=== PATIENT | male | born 1940 | race Asian ===

== ENCOUNTER 2016-10-25 09:04 | Inpatient (IN) | payer MEDICARE, OTHER ==
[~2016-10-25] VITALS: Ht 165.1 cm; Wt 77.5 kg
[2016-10-25 10:23] LABS: Basophils # (auto) 0.1 uL; Basophils % (auto) 1.1 % (0.0-2.0); Eosinophils # (auto) 0.2 uL; Eosinophils % (auto) 1.6 % (0.0-7.0); Hematocrit 43.9 % (41.0-53.0); Hemoglobin 14.3 g/dL (13.5-17.5); Lymphocytes # (auto) 1.8 uL; Lymphocytes % (auto) 18.3 % (10.0-50.0); Mean Corpuscular Hemoglobin 28.5 pg (28.0-32.0); Mean Corpuscular Hgb Conc. 32.5 g/dL (32.0-36.0); Mean Corpuscular Volume 87.8 fL (80.0-100.0); Mean Platelet Volume 7.8 fL (7.4-10.4); Monocytes # (auto) 0.6 uL; Monocytes % (auto) 6.1 % (0.0-12.0); Neutrophils # (auto) 6.9 uL; Neutrophils % (auto) 72.9 % (37.0-80.0); Platelet Count (auto) 328 10^3/uL (140-450); Red Cell Distribution Width 12.3 % (11.6-16.0); White Blood Cell 9.6 10^3/uL (4.4-10.8)
[2016-10-25 10:50] LABS: Albumin 3.3 g/dL (3.4-5.0); BUN/Creatinine Ratio 10.2; Bilirubin, Total 0.4 mg/dL (0.2-1.0); Calcium 9.3 mg/dL (8.5-10.1); Magnesium 2.5 mg/dL (1.6-2.6); Potassium 3.5 mmol/L (3.5-5.1); Total Protein 6.8 g/dL (6.4-8.2)
[2016-10-25] MEDS ORDERED: SODIUM CHLORIDE 0.9% 1,000 ML IV ONE (11:43)
[2016-10-25] MEDS ORDERED: ENOXAPARIN SOD 80 MG/0.8ML SYRINGE SC ONE (11:45)
[2016-10-25] MEDS ORDERED: DEXTROSE (50%) 50ML SYRG IV PRN (14:45)
[2016-10-25] MEDS ORDERED: NITROGLYCERIN 0.4 MG SL TAB SL PRN (14:45)
[2016-10-25] MEDS ORDERED: ASPirin 81 mg TAB PO ONE (14:45)
[2016-10-25] MEDS ORDERED: MORPHINE SULF INJ 2 MG/ML SYRINGE 1ML IV PRN (14:45)
[2016-10-25] MEDS: SODIUM CHLORIDE 0.9% 1,000 ML IV SCH ×2 (14:49→17:19)
[2016-10-25] MEDS: METOPROLOL TARTRATE 25 MG TAB PO SCH ×2 (14:52→23:17)
[2016-10-25] MEDS ORDERED: ASP81EC PO (15:18)
[2016-10-25] MEDS ORDERED: METF-489 PO (15:18)
[2016-10-25] MEDS ORDERED: AMLO10TA2 PO (15:18)
[2016-10-25] MEDS ORDERED: ESOM40CA39 PO (15:18)
[2016-10-25] MEDS ORDERED: GABA-339 PO (15:18)
[2016-10-25] MEDS ORDERED: POTA20IN2 PO (15:18)
[2016-10-25] MEDS ORDERED: TAM04C PO (15:18)
[2016-10-25] MEDS ORDERED: SITA50TA PO (15:18)
[2016-10-25] MEDS ORDERED: LOSARTAN/HCTZ PO (15:18)
[2016-10-25] MEDS ORDERED: GABA-521 PO (15:18)
[2016-10-25] MEDS ORDERED: LEV50T PO (15:18)
[2016-10-25] MEDS: ACCU-CHEK COMFORT CURVE STRIP VI SCH ×2 (17:20→23:19)
[2016-10-25] MEDS: InsuLIN REG 1unit/0.01ml Soln (100units/ml) SC SCH ×2 (17:41→23:21)
[2016-10-25 20:14] LABS: Urine Bilirubin Negative (Negative); Urine Blood Negative /uL (Negative); Urine Color Yellow (Yellow); Urine Glucose Normal (Normal); Urine Ketone Negative (Negative); Urine RBC 3 /hpf (0 - 3); Urine Triple Phosphate Crystal FEW /hpf (None Seen); Urine Urobilinogen Normal (Negative); Urine pH 8.5 (5.0-8.0)
[2016-10-25 20:27] LABS: Urine Nitrite POSITIVE (Negative)
[2016-10-25 22:00] VITALS: BP 131/71
[2016-10-25] MEDS ORDERED: PATIENTS OWN MEDICATION (Gabapentin 1 TAB) PO SCH ×2 (22:00)
[2016-10-25] MEDS ORDERED: HYDROcodone-ACET 10/325MG TAB PO ONE (22:00)
[2016-10-25] MEDS: ATORVASTATIN 20 MG TAB PO SCH (23:17)
[2016-10-25] MEDS: GABAPENTIN 300 MG CAP PO SCH (23:18)
[2016-10-25] MEDS: GABAPENTIN 400 MG CAP PO SCH (23:19)
[2016-10-26] MEDS: METOPROLOL TARTRATE 25 MG TAB PO SCH ×3 (00:17→22:28)
[2016-10-26 01:09] VITALS: BP 145/68
[2016-10-26] MEDS: HYDROcodone-ACET 10/325MG TAB PO PRN ×3 (04:00→22:28)
[2016-10-26 05:30] VITALS: BP 148/71
[2016-10-26] MEDS: LEVOTHYROXINE SODIUM 25 MCG TAB PO SCH (06:02)
[2016-10-26] MEDS: ACCU-CHEK COMFORT CURVE STRIP VI SCH ×4 (06:39→22:32)
[2016-10-26] MEDS: InsuLIN REG 1unit/0.01ml Soln (100units/ml) SC SCH ×4 (06:42→22:45)
[2016-10-26 07:08] LABS: BUN/Creatinine Ratio 11.9; Calcium 8.7 mg/dL (8.5-10.1)
[2016-10-26 07:38] LABS: Potassium 2.6 mmol/L (3.5-5.1)
[2016-10-26] MEDS ORDERED: POTASSIUM CHL 20 Meq TABLET PO ONE ×2 (08:00→12:15)
[2016-10-26 08:22] VITALS: BP 153/88
[2016-10-26] MEDS: POTASSIUM CHL 20 Meq TABLET PO SCH ×2 (08:44→08:46)
[2016-10-26] MEDS ORDERED: ADENOSINE 61 MG in GIVE UN-DILUTED 0 ML IV ONE (09:30)
[2016-10-26] MEDS ORDERED: ASPirin 81 mg TAB PO SCH (10:00)
[2016-10-26] MEDS: SITAGLIPTIN PHOSPHATE PO SCH (10:00)
[2016-10-26 11:45] VITALS: BP 154/89
[2016-10-26] MEDS: ASPirin-EC 81 mg tab PO SCH (12:12)
[2016-10-26] MEDS: GABAPENTIN 400 MG CAP PO SCH ×2 (12:12→22:27)
[2016-10-26] MEDS: PANTOPRAZOLE 40 MG TAB PO SCH (12:12)
[2016-10-26] MEDS: GABAPENTIN 300 MG CAP PO SCH ×2 (12:12→22:27)
[2016-10-26] MEDS: amLODIPine BESYLATE 5 MG TAB PO SCH (12:13)
[2016-10-26] MEDS: TAMSULOSIN HYDROCHLORIDE 0.4 MG CAP PO SCH (12:13)
[2016-10-26] MEDS ORDERED: cefTRIAXone 1GM/50ML D5W 50 ML IV ONE (12:15)
[2016-10-26 17:10] VITALS: BP 163/87
[2016-10-26 22:00] VITALS: BP 148/80
[2016-10-26] MEDS: ATORVASTATIN 20 MG TAB PO SCH (22:27)
[2016-10-27] MEDS: SODIUM CHLORIDE 0.9% 1,000 ML IV SCH ×2 (00:09→16:45)
[2016-10-27 05:30] VITALS: BP 166/91
[2016-10-27] MEDS: HYDROcodone-ACET 10/325MG TAB PO PRN (06:06)
[2016-10-27] MEDS: LEVOTHYROXINE SODIUM 25 MCG TAB PO SCH (06:06)
[2016-10-27] MEDS: ACCU-CHEK COMFORT CURVE STRIP VI SCH ×3 (06:06→16:58)
[2016-10-27 06:38] LABS: Calcium 8.4 mg/dL (8.5-10.1)
[2016-10-27 06:40] LABS: BUN/Creatinine Ratio 12.6
[2016-10-27] MEDS: InsuLIN REG 1unit/0.01ml Soln (100units/ml) SC SCH ×3 (06:44→17:00)
[2016-10-27] MEDS ORDERED: cefTRIAXone 1GM/50ML D5W 50 ML IV SCH (09:00)
[2016-10-27 09:23] VITALS: BP 153/91
[2016-10-27] MEDS: GABAPENTIN 400 MG CAP PO SCH (10:00)
[2016-10-27] MEDS: SITAGLIPTIN PHOSPHATE PO SCH (10:00)
[2016-10-27] MEDS: POTASSIUM CHL 20 Meq TABLET PO SCH (10:24)
[2016-10-27] MEDS: TAMSULOSIN HYDROCHLORIDE 0.4 MG CAP PO SCH (10:25)
[2016-10-27] MEDS: GABAPENTIN 300 MG CAP PO SCH (10:25)
[2016-10-27] MEDS: ASPirin-EC 81 mg tab PO SCH (10:25)
[2016-10-27] MEDS: METOPROLOL TARTRATE 25 MG TAB PO SCH (10:25)
[2016-10-27] MEDS: PANTOPRAZOLE 40 MG TAB PO SCH (10:27)
[2016-10-27] MEDS: amLODIPine BESYLATE 5 MG TAB PO SCH (10:27)
[2016-10-27 12:37] VITALS: BP 164/98
[2016-10-27] MEDS ORDERED: POTASSIUM CHL 20 Meq TABLET PO ONE (14:45)
[2016-10-27 15:04] VITALS: BP 153/91
[2016-10-27 16:33] VITALS: BP 159/89
[2016-10-27 18:13] VITALS: BP 159/89
== END 2016-10-27 18:10 | disposition home or self-care (01) | DRG 206 ==
LOC: ER 09:04 → EDBD 09:04 → TELE 09:05 → TELE-WESTW 20:30
PROVIDERS: ADMIT Internal Medicine; ATTEND Internal Medicine
DX: M94.0 Chondrocostal junction syndrome [Tietze] (principal); G82.20 Paraplegia, unspecified; N39.0 Urinary tract infection, site not specified; E87.6 Hypokalemia; N31.9 Neuromuscular dysfunction of bladder, unspecified; I12.9 Hypertensive chronic kidney disease with stage 1 through stage 4 chronic kidney disease, or unspecified chronic kidney disease; N18.3 Chronic kidney disease, stage 3 (moderate); E11.22 Type 2 diabetes mellitus with diabetic chronic kidney disease; I25.10 Atherosclerotic heart disease of native coronary artery without angina pectoris; Z98.890 Other specified postprocedural states
CPT/HCPCS: 36415; 71010; 78452; 80048; 80053; 80061; 81001; 82962; 83036; 83735; 84484; 85025; 85379; 93005; 93017; 93306; 94761; 96360; 96372; J0153; J0696; J1815

== ENCOUNTER → 2016-12-05 | Outpatient (CLI) | payer MEDICARE, OTHER ==
[~2016-12-05] MED LIST: AMLO10TA2 PO; ASP81EC PO; ESOM40CA39 PO; GABA-339 PO; GABA-521 PO; LEV50T PO; LOSARTAN/HCTZ PO; METF-489 PO; POTA20IN2 PO; SITA50TA PO; TAM04C PO
[2016-12-05 12:02] LABS: Basophils # (auto) 0.1 uL; Basophils % (auto) 0.5 % (0.0-2.0); Eosinophils # (auto) 0.3 uL; Eosinophils % (auto) 2.4 % (0.0-7.0); Hematocrit 41.7 % (41.0-53.0); Hemoglobin 13.3 g/dL (13.5-17.5); Lymphocytes # (auto) 2.3 uL; Lymphocytes % (auto) 18.6 % (10.0-50.0); Mean Corpuscular Hemoglobin 28.2 pg (28.0-32.0); Mean Corpuscular Hgb Conc. 31.9 g/dL (32.0-36.0); Mean Corpuscular Volume 88.4 fL (80.0-100.0); Mean Platelet Volume 8.6 fL (7.4-10.4); Monocytes # (auto) 0.8 uL; Monocytes % (auto) 6.6 % (0.0-12.0); Neutrophils # (auto) 8.7 uL; Neutrophils % (auto) 71.9 % (37.0-80.0); Platelet Count (auto) 351 10^3/uL (140-450); Red Cell Distribution Width 13.5 % (11.6-16.0); White Blood Cell 12.1 10^3/uL (4.4-10.8)
[2016-12-05 12:23] LABS: Albumin 3.5 g/dL (3.4-5.0); Alkaline Phosphatase 67 U/L (45-117); Anion Gap 12 (5-15); Aspartate Aminotransferase 14 U/L (15-37); BUN/Creatinine Ratio 14.2; Bilirubin, Total 0.3 mg/dL (0.2-1.0); Blood Urea Nitrogen 30 mg/dL (7-18); Calcium 9.2 mg/dL (8.5-10.1); Carbon Dioxide 32 mmol/L (21-32); Chloride 98 mmol/L (98-107); Cholesterol 208 mg/dL (<200); GFR African American 39 mL/min; GFR Non-African American 33 mL/min; Glucose 174 mg/dL (74-106); HDL Cholesterol 42 mg/dL (40-59); Potassium 3.1 mmol/L (3.5-5.1); Sodium 142 mmol/L (136-145); Total Protein 7.5 g/dL (6.4-8.2); Triglycerides 414 mg/dL (<150)
== END | disposition home or self-care (01) ==
LOC: LAB 10:47
PROVIDERS: ATTEND Internal Medicine
DX: Z00.00 Encounter for general adult medical examination without abnormal findings (principal)
CPT/HCPCS: 36415; 80053; 80061; 83036; 84443; 85025

== ENCOUNTER → 2017-03-28 | Outpatient (CLI) | payer MEDICARE, OTHER ==
[2017-03-28 11:15] LABS: Albumin 3.2 g/dL (3.4-5.0); BUN/Creatinine Ratio 14.5; Bilirubin, Total 0.4 mg/dL (0.2-1.0); Calcium 8.5 mg/dL (8.5-10.1); Total Protein 6.6 g/dL (6.4-8.2)
== END | disposition home or self-care (01) ==
LOC: LAB 10:13
DX: E11.65 Type 2 diabetes mellitus with hyperglycemia (principal)
CPT/HCPCS: 36415; 80053; 80061; 82043; 82570; 83036; 84443

== ENCOUNTER → 2017-07-24 | Outpatient (CLI) | payer MEDICARE, OTHER ==
[2017-07-24 11:48] LABS: Urine Protein/Creatinine Ratio 9.65
[2017-07-24 11:53] LABS: Albumin 3.4 g/dL (3.4-5.0); BUN/Creatinine Ratio 10.5; Bilirubin, Total 0.5 mg/dL (0.2-1.0); Potassium 3.2 mmol/L (3.5-5.1)
== END | disposition home or self-care (01) ==
LOC: LAB 10:34
DX: E11.65 Type 2 diabetes mellitus with hyperglycemia (principal); I10 Essential (primary) hypertension
CPT/HCPCS: 36415; 80053; 80061; 82570; 83036; 84156; 84443

== ENCOUNTER 2017-08-13 09:50 | Emergency (ER) | payer MEDICARE ==
[~2017-08-13] VITALS: Ht 165.1 cm; Wt 81.6 kg
[2017-08-13 10:30] LABS: Urine Bilirubin Negative (Negative); Urine Blood 1+ /uL (Negative); Urine Color Yellow (Yellow); Urine Glucose 4+ mg/dL (Normal); Urine Ketone Negative (Negative); Urine Nitrite POSITIVE (Negative); Urine RBC 1 /hpf (0 - 3); Urine Urobilinogen Normal (Negative); Urine WBC Clumps PRESENT /hpf (None Seen)
[2017-08-13 10:36] LABS: Basophils # (auto) 0.1 uL; Basophils % (auto) 1.2 % (0.0-2.0); Eosinophils # (auto) 0.3 uL; Eosinophils % (auto) 3.4 % (0.0-7.0); Hematocrit 42.8 % (41.0-53.0); Hemoglobin 14.3 g/dL (13.5-17.5); Lymphocytes # (auto) 1.7 uL; Lymphocytes % (auto) 20.6 % (10.0-50.0); Mean Corpuscular Hemoglobin 30.1 pg (28.0-32.0); Mean Corpuscular Hgb Conc. 33.5 g/dL (32.0-36.0); Mean Platelet Volume 8.3 fL (6.9-10.8); Monocytes # (auto) 0.5 uL; Monocytes % (auto) 5.4 % (0.0-12.0); Neutrophils # (auto) 5.9 uL; Neutrophils % (auto) 69.4 % (37.0-80.0); Nucleated Red Blood Cells % 0.1 %; Platelet Count (auto) 316 10^3/uL (140-450); Red Cell Distribution Width 13.8 % (11.8-14.3); White Blood Cell 8.5 10^3/uL (4.4-10.8)
[2017-08-13 10:54] LABS: Albumin 3.8 g/dL (3.4-5.0); BUN/Creatinine Ratio 11.9; Bilirubin, Total 0.5 mg/dL (0.2-1.0); Calcium 9.1 mg/dL (8.5-10.1); Potassium 3.5 mmol/L (3.5-5.1); Total Protein 7.9 g/dL (6.4-8.2)
[2017-08-13] MEDS ORDERED: SODIUM CHLORIDE 0.9% 1,000 ML IV ONE ×2 (11:15→12:15)
[2017-08-13] MEDS ORDERED: cefTRIAXone 1GM/50ML D5W 50 ML IV ONE (13:45)
[2017-08-13] MEDS ORDERED: InsuLIN REG 1unit/0.01ml Soln (100units/ml) IV ONE ×2 (15:30→17:30)
[2017-08-13] MEDS ORDERED: LABETALOL HCL 5 MG/ML 4ML SYRINGE IV ONE (16:00)
[2017-08-13] MEDS ORDERED: PROCHLORPERAZINE EDISYLATE 5 MG/ML 2ML VIAL IV ONE (16:00)
[2017-08-13] MEDS ORDERED: NALBUPHINE HCL 10 MG/1ml INJECTION IV ONE (16:00)
[2017-08-13 17:44] VITALS: BP 162/84
== END 2017-08-13 18:17 | disposition home or self-care (01) ==
LOC: ER 09:50
DX: E11.65 Type 2 diabetes mellitus with hyperglycemia (principal); N39.0 Urinary tract infection, site not specified; I10 Essential (primary) hypertension
CPT/HCPCS: 36415; 80053; 81001; 82962; 85025; 93005; 96361; 96365; 96375; 99285; J0696; J1815; J7030

== ENCOUNTER → 2017-10-04 | Outpatient (CLI) | payer MEDICARE ==
[2017-10-04 12:14] LABS: BUN/Creatinine Ratio 10.7; Calcium 8.9 mg/dL (8.5-10.1); Potassium 3.1 mmol/L (3.5-5.1)
== END | disposition home or self-care (01) ==
LOC: LAB 10:25
DX: Z00.01 Encounter for general adult medical examination with abnormal findings (principal); E11.9 Type 2 diabetes mellitus without complications; I10 Essential (primary) hypertension; E78.2 Mixed hyperlipidemia
CPT/HCPCS: 36415; 80048; 80061; 83036; 84443

== ENCOUNTER → 2018-01-15 | Outpatient (CLI) | payer MEDICARE ==
[2018-01-15 14:56] LABS: Albumin 3.1 g/dL (3.4-5.0); BUN/Creatinine Ratio 12.7; Bilirubin, Total 0.3 mg/dL (0.2-1.0); Calcium 8.7 mg/dL (8.5-10.1); Total Protein 8.4 g/dL (6.4-8.2)
[2018-01-16 13:24] LABS: Potassium 2.8 mmol/L (3.5-5.1)
== END | disposition home or self-care (01) ==
LOC: LAB 13:42
DX: E11.65 Type 2 diabetes mellitus with hyperglycemia (principal)
CPT/HCPCS: 36415; 80053; 82043; 83036

== ENCOUNTER → 2018-05-29 | Outpatient (CLI) | payer MEDICARE ==
[2018-05-29 13:17] LABS: Basophils # (auto) 0.1 uL; Basophils % (auto) 1.2 % (0.0-2.0); Eosinophils # (auto) 0.4 uL; Eosinophils % (auto) 3.4 % (0.0-7.0); Hematocrit 33.9 % (41.0-53.0); Hemoglobin 11.2 g/dL (13.5-17.5); Lymphocytes # (auto) 1.4 uL; Lymphocytes % (auto) 13.3 % (10.0-50.0); Mean Corpuscular Hgb Conc. 32.9 g/dL (32.0-36.0); Mean Corpuscular Volume 81.8 fL (80.0-100.0); Monocytes # (auto) 0.6 uL; Monocytes % (auto) 5.7 % (0.0-12.0); Neutrophils # (auto) 7.9 uL; Neutrophils % (auto) 76.4 % (37.0-80.0); Platelet Count (auto) 366 10^3/uL (140-450); Red Blood Cells 4.14 10^6/uL (4.5-5.90); Red Cell Distribution Width 15.9 % (11.8-14.3); White Blood Cell 10.3 10^3/uL (4.4-10.8)
[2018-05-29 14:12] LABS: BUN/Creatinine Ratio 11.3; Bilirubin, Total 0.4 mg/dL (0.2-1.0); Calcium 9.1 mg/dL (8.5-10.1); Potassium 3.1 mmol/L (3.5-5.1); Total Protein 8.1 g/dL (6.4-8.2)
== END | disposition home or self-care (01) ==
LOC: LAB 12:59
PROVIDERS: ATTEND Physician Assistant
DX: E11.22 Type 2 diabetes mellitus with diabetic chronic kidney disease (principal); I12.9 Hypertensive chronic kidney disease with stage 1 through stage 4 chronic kidney disease, or unspecified chronic kidney disease; E11.65 Type 2 diabetes mellitus with hyperglycemia; N18.3 Chronic kidney disease, stage 3 (moderate); G82.21 Paraplegia, complete; E03.9 Hypothyroidism, unspecified; E78.2 Mixed hyperlipidemia
CPT/HCPCS: 36415; 80053; 80061; 83036; 84443; 85025

== ENCOUNTER → 2018-08-14 | Outpatient (CLI) | payer MEDICARE ==
[~2018-08-14] MED LIST changes: +AMLO10TA12 PO; -AMLO10TA2 PO
[2018-08-14 15:38] LABS: Basophils # (auto) 0.2 uL; Basophils % (auto) 1.8 % (0.0-2.0); Eosinophils # (auto) 0.3 uL; Eosinophils % (auto) 3.3 % (0.0-7.0); Hematocrit 25.5 % (41.0-53.0); Hemoglobin 8.7 g/dL (13.5-17.5); Lymphocytes # (auto) 1.4 uL; Lymphocytes % (auto) 15.8 % (10.0-50.0); Mean Corpuscular Hemoglobin 29.5 pg (28.0-32.0); Mean Corpuscular Hgb Conc. 34.2 g/dL (32.0-36.0); Mean Corpuscular Volume 86.3 fL (80.0-100.0); Monocytes # (auto) 0.5 uL; Neutrophils # (auto) 6.5 uL; Neutrophils % (auto) 73.1 % (37.0-80.0); Platelet Count (auto) 378 10^3/uL (140-450); Red Blood Cells 2.96 10^6/uL (4.5-5.90); Red Cell Distribution Width 15.6 % (11.8-14.3); White Blood Cell 8.9 10^3/uL (4.4-10.8)
[2018-08-14 15:55] LABS: Albumin 3.3 g/dL (3.4-5.0); Potassium 3.5 mmol/L (3.5-5.1)
[2018-08-14 16:07] LABS: BUN/Creatinine Ratio 11.4; Bilirubin, Total 0.4 mg/dL (0.2-1.0); Total Protein 7.9 g/dL (6.4-8.2)
== END | disposition home or self-care (01) ==
LOC: LAB 15:11
PROVIDERS: ATTEND Internal Medicine
DX: E11.22 Type 2 diabetes mellitus with diabetic chronic kidney disease (principal); I12.9 Hypertensive chronic kidney disease with stage 1 through stage 4 chronic kidney disease, or unspecified chronic kidney disease; N18.4 Chronic kidney disease, stage 4 (severe)
CPT/HCPCS: 36415; 80053; 84443; 85025

== ENCOUNTER → 2018-08-21 | Outpatient (CLI) | payer MEDICARE ==
[2018-08-21 16:21] LABS: Basophils # (auto) 0.1 uL; Basophils % (auto) 0.7 % (0.0-2.0); Eosinophils # (auto) 0.1 uL; Eosinophils % (auto) 1.3 % (0.0-7.0); Hematocrit 26.1 % (41.0-53.0); Hemoglobin 8.5 g/dL (13.5-17.5); Lymphocytes # (auto) 0.8 uL; Lymphocytes % (auto) 8.6 % (10.0-50.0); Mean Corpuscular Hemoglobin 28.5 pg (28.0-32.0); Mean Corpuscular Hgb Conc. 32.6 g/dL (32.0-36.0); Mean Corpuscular Volume 87.2 fL (80.0-100.0); Monocytes # (auto) 0.7 uL; Monocytes % (auto) 6.7 % (0.0-12.0); Neutrophils % (auto) 82.7 % (37.0-80.0); Nucleated Red Blood Cells % 0.1 %; Platelet Count (auto) 319 10^3/uL (140-450); Red Blood Cells 2.99 10^6/uL (4.5-5.90); Red Cell Distribution Width 16.2 % (11.8-14.3); White Blood Cell 9.7 10^3/uL (4.4-10.8)
[2018-08-21 16:43] LABS: INR 0.98 (0.9-1.15); Partial Thromboplastin Time 31.1 sec (23.78-33.04); Prothrombin Time 10.5 sec (9.27-12.13)
== END | disposition home or self-care (01) ==
LOC: LAB 15:38
PROVIDERS: ATTEND Internal Medicine
DX: I12.0 Hypertensive chronic kidney disease with stage 5 chronic kidney disease or end stage renal disease (principal); E11.22 Type 2 diabetes mellitus with diabetic chronic kidney disease; N18.6 End stage renal disease
CPT/HCPCS: 36415; 85025; 85610; 85730

== ENCOUNTER → 2018-09-17 | Outpatient (CLI) | payer MEDICARE ==
[2018-09-17 08:38] LABS: Calcium 8.9 mg/dL (8.5-10.1)
[2018-09-17 08:41] LABS: BUN/Creatinine Ratio 9.7
== END | disposition home or self-care (01) ==
LOC: LAB 07:20
PROVIDERS: ATTEND Internal Medicine
DX: I10 Essential (primary) hypertension (principal); E11.9 Type 2 diabetes mellitus without complications
CPT/HCPCS: 36415; 80048; 83036

== ENCOUNTER 2018-10-16 08:36 | Emergency (ER) | payer MEDICARE ==
[~2018-10-16] VITALS: Ht 162.6 cm; Wt 81.6 kg
== END 2018-10-16 11:50 | disposition expired ==
LOC: ER 08:36 → EDBD 08:36 → ER 11:50
DX: I46.9 Cardiac arrest, cause unspecified (principal); K21.9 Gastro-esophageal reflux disease without esophagitis; E11.22 Type 2 diabetes mellitus with diabetic chronic kidney disease; I12.9 Hypertensive chronic kidney disease with stage 1 through stage 4 chronic kidney disease, or unspecified chronic kidney disease; N18.9 Chronic kidney disease, unspecified
CPT/HCPCS: 92950